=== PATIENT | male | born 1950 | race Caucasian/White ===

== ENCOUNTER 2019-04-26 08:15 | Day surgery (SDC) | payer MEDICARE, OTHER ==
[2019-04-25 11:15] LABS: HEMATOCRIT 43.7 % (42.0-54.0); HEMOGLOBIN 14.9 g/dL (13.5-17.5); MCH 35.5 pg (26.0-34.0); MCHC 34.1 g/dL (31.0-37.0); MEAN PLATELET VOLUME 10.3 fL (7.4-10.4); RBC 4.2 10x6/uL (4.20-6.10); RDW 13.2 % (11.5-14.5)
[~2019-04-26] VITALS: Ht 167.6 cm; Wt 81.6 kg
[~2019-04-26 08:15] MED LIST: CENTRUM MEN'S1 EACH PO; CRESTOR40 MG PO; DILANTIN100 MG PO; MICARDIS40 MG PO; NASACORT10.8 ML NASAL; TENORMIN25 MG PO
[2019-04-26 09:09] VITALS: BP 133/81; Ht 167.6 cm; Wt 81.6 kg
[2019-04-26] MEDS ORDERED: PERCOCET 10-321 EAC1 PO (14:13)
--- NOTE | 2019-04-26 16:19 | OP ---
PATIENT NAME: JERSEY CARTAGENA MEDICAL RECORD: [id number] :52 LOCATION:[facility] ADMISSION DATE: SURGEON: ERIK ALCANTAR DO DATE OF OPERATION: 04/26/2019 PROCEDURE PERFORMED: Right shoulder arthroscopy with labral debridement, subacromial decompression, distal clavicle excision. PREOPERATIVE DIAGNOSES: Right shoulder pain, subacromial impingement, AC joint arthritis, SLAP tear, partial rotator cuff tendon tear. POSTOPERATIVE DIAGNOSES: Right shoulder long head biceps tendon tear, partial subscapularis tendon tear, subacromial impingement, SLAP tear, and AC joint arthritis. INDICATIONS: Mr. Cartagena is a 68-year-old male who has had right shoulder pain for quite some time. He had pain with lifting and he has tried injections, all manner of nonoperative treatment to no avail and MRI, which showed a SLAP tear and what looked like a partial tear of the long head bicep tendon and partial rotator cuff tendon tear, subacromial impingement and AC joint arthritis. I informed him that we could clean it up, I would try to do a biceps tenodesis if still attached and that if the rotator cuff tendon was torn more than 50% we would fix it. He was okay with that plan. He was aware of the risks including infection, bleeding, damage to nerves and vessels, need for further surgery, and he signed the consent. SURGEON: Erik Alcantar DO DESCRIPTION OF PROCEDURE: The patient received a block by anesthesia in the preoperative area where he received 900 mg of clindamycin preoperatively, taken to the operative suite, laid in the left lateral decubitus position with the right shoulder up. The right shoulder was then prepped and draped after he was sedated and an LMA was placed. Once he was prepped and draped, a timeout was performed and everyone was in agreement with the correct side, site, patient, and procedure. The procedure then began by insufflating the joint with 60 mL of normal saline. This was done through the posterior portal an 18-gauge spinal needle. This was then removed. A 11-blade scalpel was used to establish the posterior portal. Trocar was then entered into the shoulder joint. The anterior portal was then established with an 18-gauge spinal needle and 11-blade scalpel and a probe was brought in. The long head of the biceps tendon was seen to be torn right at the articular margin of the humeral head. The distal extent of it was gone and was nowhere inside, but he did have a stump left. This stump was then debrided as well as the labrum and SLAP tear was noted and the partial tear of the subscapularis tendon was noted at that time, it was not full thickness and it was attached well with internal and external rotation of the humerus. The supraspinatus was seen to be pristine, no partial tear or any type of tear was seen in the supraspinatus or infraspinatus. No loose body was seen in the inferior gutter and the cartilage was in good shape as well. The scope was then taken to the subacromial space. There was quite a bit of inflammation there. This was removed. The bursa was removed after 18-gauge spinal needle and 11 blade scalpel was used to establish a lateral portal and an acromioplasty was done on the distal lateral acromion. The AC joint was then also opened up by removing some of the distal clavicle opening the joint to approximately 7 mm. The rest of the rotator cuff was then inspected on the bursal side. There were no tears seen in the subscapularis tendon or the supraspinatus or infraspinatus OPERATIVE REPORT [id number] JERSEY CARTAGENA and the humerus was probed to see if I could feel the long head of the biceps tendon, the distal extent of it and I could not. The labrum had been debrided and the other stump in the shoulder joint was then debrided as well of the long head of the biceps tendon prior to going into subacromial space. The water was then turned off and the suction was turned on. Portal sites were closed with 4-0 Monocryl in inverted interrupted fashion and glue was placed on the incision sites and a Telfa and Tegaderm were placed on those. The patient was then awakened and taken to recovery in stable condition. BLOOD LOSS: Minimal. COMPLICATIONS: None. TRANSINT:[id number] Voice Confirmation ID: [id number] DOCUMENT ID: [id number] ERIK ALCANTAR DO at 8614 CC: MARILIN GLASER MD [id number] DICTATION DATE: 04/26/19 1419 HOME ENERGY RATER: 04/26/19 [facility] 04/26/19 [facility] [address] [place] [address]
== END 2019-04-26 16:00 | disposition home or self-care (01) ==
LOC: D.OPS 08:15 → D.PAN 13:45 → D.OPS 13:45
PROVIDERS: Anesthesiology; ATTEND Orthopaedic Surgery
DX: S46.111A Strain of muscle, fascia and tendon of long head of biceps, right arm, initial encounter (principal); S46.011A Strain of muscle(s) and tendon(s) of the rotator cuff of right shoulder, initial encounter; X58.XXXA Exposure to other specified factors, initial encounter; M75.41 Impingement syndrome of right shoulder; S43.431A Superior glenoid labrum lesion of right shoulder, initial encounter; M13.811 Other specified arthritis, right shoulder; Z01.812 Encounter for preprocedural laboratory examination

== ENCOUNTER 2019-06-21 05:00 | Day surgery (SDC) | payer MEDICARE, OTHER ==
[2019-06-20 11:17] LABS: HEMATOCRIT 43.6 % (42.0-54.0); HEMOGLOBIN 14.9 g/dL (13.5-17.5); MCH 35.1 pg (26.0-34.0); MCHC 34.2 g/dL (31.0-37.0); MCV 102.6 fL (80.0-100.0); MEAN PLATELET VOLUME 10.3 fL (7.4-10.4); RBC 4.25 10x6/uL (4.20-6.10); RDW 12.6 % (11.5-14.5); WBC 6.1 10x3/uL (4.8-10.8)
[~2019-06-21] VITALS: Ht 167.6 cm; Wt 83.9 kg
[~2019-06-21 05:00] MED LIST changes: +PERCOCET 10-321 EAC1 PO
[2019-06-21] MEDS ORDERED: ALLERGY MED (05:37)
[2019-06-21 05:45] VITALS: BP 125/78; Ht 167.6 cm; Wt 83.9 kg
[2019-06-21] MEDS ORDERED: PERCOCET 5-3251 TAB PO (08:56)
--- NOTE | 2019-06-21 09:42 | NUR ---
REBLOCK OF SHOULDER COMPLETE @[id number]
--- NOTE | 2019-06-21 09:54 | NUR ---
SCOPE PATCH BEHIND RT EAR ON ADMIT TO [facility]
--- NOTE | 2019-06-21 09:55 | OP ---
PATIENT NAME: JERSEY CARTAGENA MEDICAL RECORD: [id number] :52 LOCATION:[facility] ADMISSION DATE: SURGEON: CALDERON ALCANTAR DO DATE OF OPERATION: 06/21/2019 PROCEDURE PERFORMED: Left shoulder arthroscopy with rotator cuff repair, labral debridement, biceps tenodesis, subacromial decompression, distal clavicle excision. PREOPERATIVE DIAGNOSES: Left shoulder rotator cuff tear, labral tear, subacromial impingement, AC joint arthritis. POSTOPERATIVE DIAGNOSES: Left shoulder rotator cuff tear, labral tear, subacromial impingement, AC joint arthritis. INDICATIONS: Mr. Cartagena is a 69-year-old male who had his right shoulder done a few months ago. His left shoulder kept hurting him and he had an MRI, which showed a partial tear, but he said it has been hurting more and more in his shoulder. On exam, he had weakness without empty can and a positive Maxwell as well as a crossover and Dodge's testing with those signs. I informed him, he already had the MRI, I would scope the shoulder and do the above procedure. He was okay with that as well as the risks including infection, bleeding, damage to nerves and vessels, need for further surgery, further tear of the rotator cuff and he signed the consent. SURGEON: Calderon Alcantar DO DESCRIPTION OF PROCEDURE: The patient was given a block by anesthesia in the preoperative area and taken to the operative suite, laid in the right lateral decubitus position with the left arm up. The left shoulder was prepped and draped in sterile fashion. He was given 900 mg of clindamycin preoperatively. Timeout was performed, everyone was in agreement as to the correct side, site, patient and procedure. Once that was performed, and the patient had been prepped and draped, the shoulder was insufflated with 60 mL of normal saline through the posterior portal, which was established with an 11-blade scalpel and the trocar was entered into the shoulder joint. The rotator cuff tear was seen immediately as well as the labral tear. Anterior portal was established with an 18-gauge spinal needle and 11-blade scalpel. A burner was brought in to do the bicep tenotomy and labral debridement. I then inspected the joint, the joint looked good. There was nothing in the inferior gutter. There was a partial tear of the subscapularis, but it was intact. This was slightly debrided. The scope was then switched to the subacromial space. Subacromial decompression was done as well as acromioplasty and distal clavicle excision. The bursal-sided tear was noted as well as a full thickness. The lateral portal had been established prior to it with an 18-gauge spinal needle and 11-blade scalpel and this was opened further with a 15-blade and careful dissection was made down to the tear itself. A SpeedBridge was used with a FiberTape. I had to do a [id number]-duro repair with some of the sutures from the anchor and then this was secured with a lateral row, 2 anchors in the lateral row and had 2 in the medial row making a nice repair. Once that was done, the attention was drawn to the biceps tenodesis part. An incision was made on the anterior humerus. Careful dissection was made down to the long head of the biceps tendon just at the pec muscle. A small incision was made and this tendon was pulled out through the incision and whipstitched with a FiberLoop and then a button was used and put unicortically into the humerus and cinched the tendon down and then this was OPERATIVE REPORT [id number] JERSEY CARTAGENA tied and then a free needle was used to go back through the tendon and then this was tied on top of that near the excess tendon and suture removed. This was then irrigated thoroughly as well as the other areas of the open area of the rotator cuff repair. These were then closed, the larger ones with 2-0 Vicryl in inverted interrupted fashion, 4-0 Monocryl ran on the skin. The anterior and posterior scope with a 4-0 Monocryl in inverted interrupted fashion. Dermabond was placed on each and Telfa and Tegaderm along that. He was then awakened and taken to recovery in stable condition. BLOOD LOSS: Minimal. COMPLICATIONS: None. He was placed in a sling and taken to recovery. TRANSINT:[id number] Voice Confirmation ID: [id number] DOCUMENT ID: [id number] CALDERON ALCANTAR DO at 0955 CC: [id number] DICTATION DATE: 06/21/19853 [employer]IL[employer] REFU[employer] SPECIALIST: 06/21/19912 [facility] [address] [place] [address]
== END 2019-06-21 11:55 | disposition home or self-care (01) ==
LOC: D.OPS 05:00 → D.PAN 07:00 → D.OPS 07:00 → D.PAN 07:45 → D.OPS 11:55
PROVIDERS: Anesthesiology; ATTEND Orthopaedic Surgery
DX: M75.122 Complete rotator cuff tear or rupture of left shoulder, not specified as traumatic (principal); S43.402A Unspecified sprain of left shoulder joint, initial encounter; X58.XXXA Exposure to other specified factors, initial encounter; M75.42 Impingement syndrome of left shoulder; M13.812 Other specified arthritis, left shoulder; Z01.812 Encounter for preprocedural laboratory examination